=== PATIENT | male | born 1950 | race Caucasian/White ===

== ENCOUNTER 2019-03-01 14:34 | Outpatient (CLI) | payer MEDICARE, OTHER, SELFPAY ==
--- NOTE | 2019-03-01 15:00 | USCV_ITS ---
Luiz Tommy Age: 68 Gender: M : 1950 Exam Date: 03/01/2019 14:56 Ordering Phys: Cassia Ny INSURANCE ADMINISTRATIVE ASSISTANT XX Technologist: Geovanna Hall [place] [facility] [place]: atypical chest pain, BP: / HR: 72 Rhythm: Sinus Technical Quality: Good MEASUREMENTS (Male / Female) Normal Values 2D ECHO LV Diastolic Diameter PLAX 4.9 cm 4.2 - 5.9 / 3.9 - 5.3 cm LV Systolic Diameter PLAX 3.0 cm IVS Diastolic Thickness 1.0 cm 0.6 - 1.0 / 0.6 - 0.9 cm IVS Systolic Thickness 1.1 cm LVPW Diastolic Thickness 1.0 cm 0.6 - 1.0 / 0.6 - 0.9 cm LVPW Systolic Thickness 1.8 cm LVOT Diameter 2.0 cm LV Ejection Fraction 2D Teich 68.3 % LV Ejection Fraction MOD 2C 62.9 % LV Ejection Fraction 2C AL 64.0 % LA Diameter 3.4 cm LA Width 3.5 cm LA Height 3.8 cm RA Width 3.9 cm RA Height 4.6 cm M-MODE LV Diastolic Diameter MM 5.7 cm 4.2 - 5.9 / 3.9 - 5.3 cm LV Systolic Diameter MM 3.8 cm LV Ejection Fraction MM Teich 60.1 % IVS Diastolic Thickness MM 0.8 cm 0.6 - 1.0 / 0.6 - 0.9 cm IVS Systolic Thickness MM 1.2 cm LVPW Diastolic Thickness MM 0.7 cm 0.6 - 1.0 / 0.6 - 0.9 cm LVPW Systolic Thickness MM 1.1 cm Aortic Annulus Diameter 3.3 cm LA Ao Ratio MM 1.0 DOPPLER AV Peak Velocity 111.0 cm/s LVOT Peak Velocity 99.0 cm/s AV Area Cont Eq vti 2.8 cm squared AV Area Cont Eq pk 2.8 cm squared MV Peak Velocity 181.0 cm/s MV Area PHT 1.9 cm squared Mitral E to A Ratio 0.8 MV E' Velocity 136.0 cm/s TR Peak Velocity 45.0 cm/s TR Peak Gradient 0.8 mmHg Right Atrial Pressure 3.0 mmHg Pulmonary Artery Systolic Pressu 3.8 mmHg PV Peak Velocity 93.0 cm/s RV Acceleration Time 0.1 s FINDINGS Left Ventricle Normal LV size with a slightly diminished ejection fraction of 51%. Hypokinesis of the left ventricle.Grade I/IV diastolic dysfunction (abnormal relaxation filling pattern), normal to mildly elevated filling pressures. Right Ventricle Normal RV size and ejection fraction Right Atrium Possibly of normal size Left Atrium Possibly of normal size Mitral Valve ? A bioprosthetic valve in the mitral position. Peak velocity at the mitral inflow was 1.8 m/s. Peak gradient across the mitral valve was 4.6 mmHg Aortic Valve Thickened aortic valve Tricuspid Valve No gross abnormalities noted Pulmonic Valve No gross abnormalities noted Pericardium No pericardial effusion. Aorta Mildly dilated aortic root measuring 3.9 cm the level of the sinus CONCLUSIONS Normal LV size with a slightly diminished ejection fraction of 51%. Diffuse hypokinesia of the left ventricle . Grade I/IV diastolic dysfunction (abnormal relaxation filling pattern), normal to mildly elevated filling pressures. ? A bioprosthetic valve in the mitral position. Peak velocity at the mitral inflow was 1.8 m/s. Peak gradient across the mitral valve was 4.6 mmHg. Thickened aortic valve. There is no pericardial effusion. There are no intracardiac masses. Mildly dilated aortic root measuring 3.9 cm the level of the sinus. No previous study is available for comparison. Dr Crystal Torres MD FAC (Electronically Signed) Final Date: 02 March 2019 00:31 S
== END 2019-03-01 14:35 | disposition home or self-care (01) ==
LOC: RAD 14:36
PROVIDERS: Family Provider Nurse Practitioner Family; PCP Nurse Practitioner Family; Visit Provider Nurse Practitioner Family
DX: I77.819 Aortic ectasia, unspecified site (principal); R07.89 Other chest pain; I35.8 Other nonrheumatic aortic valve disorders; Z95.2 Presence of prosthetic heart valve
CPT/HCPCS: 93306

== ENCOUNTER 2021-02-14 11:19 | Emergency (ER) | payer MEDICARE, SELFPAY ==
[2021-02-14 11:34] VITALS: BP 162/96; PULSE 76; RESP 14; TEMP 37.1; O2SAT 98; BMI 26.4
--- NOTE | 2021-02-14 11:43 | ED_ITS ---
HPI - Chest Pain General: Chief Complaint: Extremity Injury, Upper Stated Complaint: Chest Pains Time Seen by Provider: 02/14/21 11:32 History of Present Illness: HPI narrative: 70-year-old male presents to the emergency room complaining of shoulder pain. He reports pain began 4 to 5 days ago initially in the right shoulder and then describes a migration across the collarbones in the left shoulder and then inferior from there. He has not really noticed anything that exacerbates or relieves it. He does have a history of a previous bioprosthetic mitral valve replacement in 2013. He has no known history of coronary artery disease. He has not had any significant shortness of breath with this nausea vomiting diarrhea or diaphoresis. 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 He is having minimal discomfort at this time. MD complaint: chest pain Onset (ago): day(s) (4) Timing of current episode: episodic Onset: during rest Pain location: right chest Pain radiation: left arm and left shoulder Severity: mild Quality: aching Relieving factors: nothing Exacerbating factors: nothing Associated symptoms: Deny abdominal pain, diaphoresis, dyspnea, fever(s), leg edema, nausea, palpitations, sense of impending doom, syncope or vomiting Treatment prior to arrival: none Review of Systems Const: Denies: fever(s) or diaphoresis ENMT: Denies: throat pain, ear or mastoid pain, nasal discharge or nasal congestion Card: Denies: palpitations or syncope Resp: Denies: dyspnea GI: Denies: abdominal pain, nausea or vomiting : Denies: flank pain, dysuria, urinary frequency or urinary urgency Skin/Breast: Denies: rash or pruritus PFSH ED PFSH: Medical History (Updated 02/14/21 @ 16:15 by Ephraim Tracey DO) Mitral valve disease Surgical History (Updated 02/14/21 @ 16:15 by Ephraim Tracey DO) History of mitral valve prosthesis Social History (Updated 02/14/21 @ 13:03 by Ephraim Tracey DO) Smoking and tobacco status: never smoked Alcohol intake: never Physical Exam Const: COMMON NORMALS: no acute distress GENERAL APPEARANCE: cooperative and comfortable ORIENTATION/CONSCIOUSNESS: Yes awake, Yes oriented to person, Yes oriented to place and Yes oriented to time HENMT: COMMON NORMALS: normocephalic, atraumatic and hearing grossly normal bilaterally HEAD & SCALP: normocephalic and atraumatic Neck/C-Spine: COMMON NORMALS: no JVD Resp: COMMON NORMALS: normal respiratory effort, No retractions, No use of accessory muscles and clear to auscultation bilaterally AUSCULTATION: clear to auscultation bilaterally Cardio: COMMON NORMALS: no JVD, regular rate, regular rhythm and No murmurs present (Cardio) RATE: regular rate RHYTHM: regular rhythm GI: COMMON NORMALS: Soft to palpation and No hepatosplenomegaly present AUSCULTATION: Yes normoactive bowel sounds PALPATION: Yes Soft to palpation, No Tenderness to palpation present (GI), No Guarding due to palpation present (GI) and Yes No hepatosplenomegaly present Extremity: COMMON NORMALS: normal to inspection, capillary refill normal, no clubbing, cyanosis or edema, no calf tenderness and no pedal edema Neuro: SENSORIUM/ORIENTATION: Yes oriented to person, Yes oriented to place and Yes oriented to time Skin: COMMON NORMALS: no rashes or lesions noted GENERAL SKIN EXAM: no rashes or lesions noted Course Vital Signs: Vital signs: Vital Signs Temperature 98.8 F 02/14/21 11:34 Pulse Rate 63 02/14/21 16:39 Respiratory Rate 16 02/14/21 16:39 Blood Pressure 130/78 02/14/21 16:39 Pulse Oximetry 98 02/14/21 16:39 MDM - Chest Pain MDM Narrative: Medical decision making narrative: Atypical chest pain presentation. Labs EKGs and imaging reviewed. We will go ahead and discharge patient home limit activity no work above shoulder level. Have him follow-up with his primary care doctor within the next week. We will set him up for a Le xiscan sestamibi stress test as well. Return for further problems. Lab Data: Labs: Lab Results 02/14/21 02/14/21 02/14/21 12:21 12:21 12:21 WBC 8.9 10^3/uL 10^3/ uL (4.0-10.0) RBC 3.95 10^6/uL L 10 ^6/uL (4.1-5.3) Hgb 12.7 g/dL g/dL (11.7-16.6) Hct 38.5 % L % (42.0-52.0) MCV 97.5 fl H fl (80-94) MCH 32.2 pg pg (28.0-34.0) MCHC 33.0 g/dL g/dL (30.0-36.0) RDW 12.0 % L % (12.1-15.1) Plt Count 176 10^3/cmm 10^3 /cmm (130-400) MPV 11.3 fL H fL (7.4-10.4) Neut % (Auto) 68.1 % % Lymph % (Auto) 20.0 % % [place] % (Auto) 9.6 % % Eos % (Auto) 1.8 % % Baso % (Auto) 0.2 % % Neut # (Auto) 6.02 10^3/uL 10^3 /uL (1.8-7.7) Lymph # (Auto) 1.8 10^3/uL 10^3/ uL (0.8-4.8) [place] # (Auto) 0.9 10^3/uL 10^3/ uL (0.2-0.9) Eos # (Auto) 0.2 10^3/uL 10^3/ uL (0.0-0.8) Baso # (Auto) 0.0 10^3/uL 10^3/ uL (0.0-0.1) Nucleated RBC % (a uto) 0 % % Nucleated RBCs # 0.0 /100WBC /100W BC Sodium 140 mmol/L mmol/L (136-145) Potassium 4.8 mmol/L mmol/L (3.5-5.1) Chloride 104 mmol/L mmol/L (98-107) Carbon Dioxide 23 mmol/L mmol/L (22-29) Anion Gap 17.8 (5-19) BUN 18 mg/dL mg/dL (8-23) Creatinine 0.8 mg/dL mg/dL (0.7-1.2) GFR Calculation 95.6 mL/min mL/mi n (90-130) Glucose 87 mg/dL mg/dL (65-115) Calculated Osmolal ity 291 mOsm/kg mOsm/ kg (285-295) Calcium 9.3 mg/dL mg/dL (8.5-10.5) Total Bilirubin 0.3 mg/dL mg/dL (0.15-1.2) AST 15 U/L U/L (0-40) ALT 14 U/L U/L (0-41) Alkaline Phosphata se 33 IU/L L IU/L (40-130) Troponin T Baselin e 17 ng/L H ng/L (0-15) Troponin T 120 Min jerome Delta Troponin T Total Protein 6.6 g/dL g/dL (6.6-8.7) Albumin 3.8 g/dL g/dL (3.5-5.2) Globulin 2.8 g/dL g/dL (1.3-4.6) 02/14/21 14:49 WBC RBC Hgb Hct MCV MCH MCHC RDW Plt Count MPV Neut % (Auto) Lymph % (Auto) [place] % (Auto) Eos % (Auto) Baso % (Auto) Neut # (Auto) Lymph # (Auto) [place] # (Auto) Eos # (Auto) Baso # (Auto) Nucleated RBC % (a uto) Nucleated RBCs # Sodium Potassium Chloride Carbon Dioxide Anion Gap BUN Creatinine GFR Calculation Glucose Calculated Osmolal ity Calcium Total Bilirubin AST ALT Alkaline Phosphata se Troponin T Baselin e Troponin T 120 Min jerome 16.61 ng/L H ng/L (0-15) Delta Troponin T -0.39 ABS# L ABS# (0-10) Total Protein Albumin Globulin Discharge Plan Discharge Patient Disposition: Home Clinical Impression: Atypical chest pain, History of mitral valve prosthesis, Shoulder pain, bilateral Condition: Stable Prescriptions: New aspirin 81 mg tablet,delayed release (DR/EC) 81 mg PO DAILY Qty: 30 RF: 0 Discharge Orders: Discharge ED (Routine); Ordered 02/14/21 Ordered By: Ephraim Tracey Referrals: Cassia Ny FNP [Primary Care Provider] - Discharge Diet: Usual diet Discharge Activity: Limit activity as instructed Patient Instructions: Opioid Safety Activity Restrictions/Additional Instructions: No working above shoulder level no exertional activities return to the ER if you have further problems. Case management will call to arrange for a Lexiscan sestamibi stress test follow-up with your primary care doctor within the week. Coding Level of Care Code ED Senior Electrical Engineer for Tracy Fwd Exam Comprehensive
--- NOTE | 2021-02-14 11:43 | ECG_ITS ---
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 Measurements Intervals [place] Rate: 74 P: 48 NV: 177 QRS: 40 QRSD: 90 T: 55 QT: 377 QTc: 421 Interpretive Statements SINUS RHYTHM POSSIBLE LEFT ATRIAL ENLARGEMENT [-0.1mV P-WAVE IN V1/V2] Compared to ECG 06/10/2017 10:04:29 No significant changes Electronically Signed On 02-14-2021 20:25:46 BENZENE OPERATOR by Rose Trent M.D. [id number]
--- NOTE | 2021-02-14 11:43 | XR_ITS ---
WS: [id number] Portable AP upright chest, 02/14/2021 Clinical Data: chest pain Comparison: PA and lateral chest, 07/20/2017. Findings: No nodules, masses or effusions are seen. The heart is normal. The pulmonary vascularity is not increased. No pneumonia or pneumothorax is seen. There are midline sternotomy sutures and an art ificial cardiac valve. The aortic arch and descending thoracic aorta show mild tortuosity. There are monitor leads on the chest wall. XR/XR chest 1V portable [id number] Impression: Atherosclerosis.
--- NOTE | 2021-02-14 12:03 | XR_ITS ---
WS: [id number] Left shoulder, 2 views, 02/14/2021 Clinical Data: l shoulder Comparison: None. Findings: No fractures or dislocations are seen. There is minimal irregularity of the glenoid rim. The AC joint is normal. The adjacent left clavicle, left scapula and ribs are normal. The soft tissues are unrema rkable. Midline sternotomy sutures are noted. There is a monitor lead overlying the left chest. 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
[2021-02-14 12:31] VITALS: BP 129/79; PULSE 64; RESP 19; O2SAT 97
[2021-02-14 12:37] LABS: Basophils % 0.2 %; Eosinophils # 0.2 10^3/uL (0.0-0.8); Eosinophils % 1.8 %; Hematocrit 38.5 % (42.0-52.0); Hemoglobin 12.7 g/dL (11.7-16.6); Lymphocytes # 1.8 10^3/uL (0.8-4.8); Mean Corpuscular Hemoglobin 32.2 pg (28.0-34.0); Mean Corpuscular Volume 97.5 fl (80-94); Mean Platelet Volume 11.3 fL (7.4-10.4); Monocytes # 0.9 10^3/uL (0.2-0.9); Monocytes % 9.6 %; Neutrophils # 6.02 10^3/uL (1.8-7.7); Neutrophils % 68.1 %; Nucleated Red Blood Cells % 0 %; Platelet Count 176 10^3/cmm (130-400); Red Blood Count 3.95 10^6/uL (4.1-5.3); White Blood Count 8.9 10^3/uL (4.0-10.0)
[2021-02-14 12:54] VITALS: BP 129/79; PULSE 61; O2SAT 96
[2021-02-14 12:55] LABS: Alanine Aminotransferase 14 U/L (0-41); Albumin Level 3.8 g/dL (3.5-5.2); Alkaline Phosphatase 33 IU/L (40-130); Anion Gap 17.8 (5-19); Aspartate Amino Transferase 15 U/L (0-40); Blood Urea Nitrogen 18 mg/dL (8-23); Calcium 9.3 mg/dL (8.5-10.5); Carbon Dioxide 23 mmol/L (22-29); Chloride 104 mmol/L (98-107); Globulin 2.8 g/dL (1.3-4.6); Glomerular Filtration Rate 95.6 mL/min (90-130); Glucose 87 mg/dL (65-115); Osmolality Calculated 291 mOsm/kg (285-295); Potassium 4.8 mmol/L (3.5-5.1); Sodium 140 mmol/L (136-145); Total Bilirubin 0.3 mg/dL (0.15-1.2); Total Protein 6.6 g/dL (6.6-8.7)
[2021-02-14 12:57] LABS: Troponin(5th) Baseline 17 ng/L (0-15)
--- NOTE | 2021-02-14 13:43 | ECG_ITS ---
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 Measurements Intervals [place] Rate: 62 P: 46 VT: 190 QRS: 36 QRSD: 88 T: 52 QT: 420 QTc: 428 Interpretive Statements SINUS RHYTHM Compared to ECG 02/14/2021 11:37:37 No significant changes Electronically Signed On 02-14-2021 20:39:13 RESIDENT PROGRAMS ASSISTANT by Rose Trent M.D. [id number]
[2021-02-14 14:06] VITALS: BP 151/85; PULSE 64; RESP 15; O2SAT 97
[2021-02-14 15:34] LABS: Troponin 5 2HR 16.61 ng/L (0-15)
[2021-02-14 15:41] LABS: Troponin 5 2HR Delta -0.39 ABS# (0-10)
[2021-02-14 16:39] VITALS: BP 130/78; PULSE 63; RESP 16; O2SAT 98
--- NOTE | 2021-02-17 14:51 | DCPLANNER ---
Addendum entered by Kacey Chow 03/06/21 09:48: Patient had a stress test scheduled for 02.28.21 - patient did attend appointment. Original Note: funeral service manager had message to schedule an outpatient stress test for patient. funeral service manager faxed signed order to centralized scheduling, who will call patient with appointment information.
== END 2021-02-14 16:42 | disposition home or self-care (01) ==
PROVIDERS: Emergency Provider Family Medicine; PCP Nurse Practitioner Family
DX: M25.512 Pain in left shoulder (principal); M25.511 Pain in right shoulder; R07.89 Other chest pain; Z95.2 Presence of prosthetic heart valve
CPT/HCPCS: 71045; 73030; 80053; 84484; 85025; 93005; 99283

== ENCOUNTER 2021-02-28 09:46 | Outpatient (CLI) | payer MEDICARE, SELFPAY ==
[2021-02-28 09:45] VITALS: BMI 26.4
--- NOTE | 2021-02-28 10:56 | NMCV_ITS ---
NM moraima perf SPECT r/s* [id number] Tommy Dee Age: 70 Gender: M : 1950 Exam Date: 02/28/2021 11:21 Ordering Phys: Ephraim Tracey DO Technologist: SCOTT Long Exam Location: [facility] Indications: ATYPICAL CHEST PAIN STRESS TEST Please [facility] for [facility] IMAGE PROTOCOL Rest/Stress 1 Lexiscan Day Radiopharmaceutical Dose (mCi) Administration Site Administered by Rest: Tc-99m 10.6 IV SCOTT Kendrick Sestamibi Stress:Tc-99m 32.8 IV SCOTT Long Sestamiusha Rest: 28-Feb-2021 60 Discovery 630 Stress: 28-Feb-2021 30 Discovery 630 0.4mg Lexiscan. Images obtained in supine and prone position. SPECT RESULTS Technical Quality: Excellent Raw Data Analysis: Normal Image Corrections: No attenuation or motion correction applied Summed Stress Score: 2 Summed Rest Score: 1 Summed Difference Score: 1 PERFUSION FINDINGS Small size perfusion abnormality of mild severity of mid inferolateral wall and apical inferior wall on rest images with subtle reversibility in mid inferolateral wall on supine stress images with improved tracer uptake on prone stress images. FUNCTIONAL RESULTS (calculated via Gated SPECT) Stress Image LV EF (%): 59 Stress EDV (mL):129 TID: 0.94 Stress ESV (mL):53 FUNCTIONAL FINDINGS: The left ventricle is normal in size. Transient Ischemia Dilatation of 0.94. There is normal left ventricular systolic function. The left ventricular ejection fraction is normal with a value of 59%. There is normal left ventricular end-diastolic and end-systolic volumes. IMPRESSIONS 1. Small size perfusion abnormality of mild severity of mid inferolateral ayala with subtle reversibility in mid inferolateral and apical lateral ayala. 2. This may represent small area of ischemia in circumflex artery territory. 3. Overall left ventricular systolic function is normal without regional wall motion abnormalities. 4. The left ventricular ejection fraction is normal with a value of 59%. 5. No prior similar studies to compare. Rose Trent MD (Electronically Signed) Final Date: 06 March 2021 14:04 S
--- NOTE | 2021-02-28 10:56 | ECG_ITS ---
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 Interpretive Statements NAME OF STUDY: LEXISCAN SESTAMIBI STRESS TEST INDICATION: Chest Pain PROCEDURE: At the baseline, the blood pressure was 159/108 mmHg, oxygen saturation 97% with a heart rate of 50 bpm. The electrocardiogram showed sinus bradycardia with nonspecific ST depression. The Lexiscan was infused over a period of 20 seconds. A total of 0.4 milligrams of Lexiscan was infused. The stress phase was continued for a total of 5 minutes. Heart rate at the end of the stress phase was 58 bpm, oxygen saturation 95% with a blood pressure of 157/98 mmHg. The EKG at the peak infusion revealed sinus bradycardia with no significant ST-T wave changes. Sestamibi was injected 20 seconds after the Lexiscan infusion. Blood pressure at the end of the recovery phase was 162/95 mmHg, oxygen saturation 96% with a heart rate of 57 beats per minute. CONCLUSION: 1. No significant EKG changes with the LexiScan infusion 2. No LexiScan induced chest pain or cardiac arrhythmia. 3. Baseline hypertension with normal blood pressure and heart rate response. 4. Sestamibi/sestamibi perfusion scan pending; see separate report. SEND RESULTS TO JAIRO GUERRA Electronically Signed On 03-04-2021 13:39:53 RELIGION DEPARTMENT CHAIR by Rose Trent M.D. [id number]
[2021-02-28] MEDS: regadenoson 0.4 Mg/5 ml Syringe IVP (11:56)
[2021-02-28 12:10] VITALS: BP 162/95; PULSE 57
== END 2021-02-28 09:47 | disposition home or self-care (01) ==
LOC: CDL 09:53
PROVIDERS: PCP Nurse Practitioner Family; Visit Provider Family Medicine
DX: R07.89 Other chest pain (principal)
CPT/HCPCS: 78452; 93017; A9500; J2785

== ENCOUNTER → 2022-03-19 15:48 | Outpatient (BNVA) | payer MEDICARE, SELFPAY | PROVIDERS: PCP Nurse Practitioner Family; Visit Provider Internal Medicine | DX: I05.9 Rheumatic mitral valve disease, unspecified (principal); Z95.2 Presence of prosthetic heart valve; R06.00 Dyspnea, unspecified; Z87.891 Personal history of nicotine dependence | CPT/HCPCS: 99214 ==

== ENCOUNTER 2022-05-30 06:02 | Outpatient (CLI) | payer MEDICARE, SELFPAY ==
--- NOTE | 2022-05-30 06:15 | USCV_ITS ---
Tommy Dee Age: 72 Gender: M : 1950 Exam Date: 05/30/2022 06:16 Ordering Phys: Matt Rodas M.D ([email or web address]) Technologist: TOMI [place] [facility] [place]ication: SHORTNESS OF BREATH, H/O MITRAL VALVE REPLACEMENT BP: 136 / 78 HR: 74 Rhythm: Sinus Technical Quality: Adequate MEASUREMENTS (Male / Female) Normal Values 2D ECHO LVOT Diameter 2.0 cm LV Ejection Fraction MOD 2C 39.2 % LV Ejection Fraction 2C AL 38.8 % LA Diameter 3.4 cm LA Width 3.9 cm LA Height 3.5 cm RA Width 4.4 cm RA Height 4.6 cm Aorta at Sinotubular Diameter 2.9 cm IVC Diameter 1.6 cm M-MODE Aortic Annulus Diameter 3.8 cm LA Ao Ratio MM 0.8 MV E Point Septal Separation 1.1 cm DOPPLER AV Peak Velocity 142.0 cm/s LVOT Peak Velocity 111.0 cm/s AV Area Cont Eq vti 2.6 cm squared AV Area Cont Eq pk 2.5 cm squared MV Peak Velocity 182.0 cm/s MV Area PHT 3.2 cm squared Mitral E to A Ratio 0.8 MV E' Velocity 85.6 cm/s Mitral E to MV E' Ratio 21.1 Mitral E to LV E' Lateral Ratio 20.5 Mitral E to LV E' Septal Ratio 21.8 TR Peak Velocity 158.4 cm/s TR Peak Gradient 10.0 mmHg TR Mean Velocity 133.3 cm/s TR Mean Gradient 7.5 mmHg TR Velocity Time Integral 47.8 cm TV Peak E Velocity 33.0 cm/s Right Atrial Pressure 3.0 mmHg Pulmonary Artery Systolic Pressu 13.0 mmHg PV Peak Velocity 99.0 cm/s RV Acceleration Time 0.1 s RV Ejection Time 0.4 s RV AcT/ET 0.2 FINDINGS Left Ventricle Left ventricle appears dilated. LV systolic function is moderately reduced with EF of 35-40%. Moderate to severe global hypokinesis seen. Grade 1 diastolic dysfunction. Right Ventricle Normal in size and function Right Atrium Normal in size Left Atrium Normal in size Mitral Valve Bioprosthetic mitral valve is seen. It is thickened. Trace mitral regurgitation. Mild to moderately increased gradients across mitral valve with mean gradient of 6.8 mmHg. Aortic Valve Grossly normal. Mild aortic regurgitation. No significant stenosis. Tricuspid Valve Mild tricuspid regurgitation. Pulmonary artery systolic pressure is normal. Pulmonic Valve Not well-visualized. Mild pulmonic regurgitation. Pericardium Normal Aorta Normal in size. IVC Appears to be normal CONCLUSIONS Left ventricle is dilated. LV systolic function is moderately reduced with EF of 35-40%. Grade 1 diastolic dysfunction. Bioprosthetic Mitral valve is seen. Trace mitral regurgitation. Mild to moderately increased gradients across mitral valve Mild aortic regurgitation Mild tricuspid regurgitation Mild pulmonic regurgitation Compared to prior echocardiogram from 2019, patient's LV systolic function is decreased and mean gradient across mitral valve has increased Matt Rodas MD (Electronically Signed) Final Date: 07 June 2022 16:19 S
== END 2022-05-30 06:03 | disposition home or self-care (01) ==
PROVIDERS: PCP Nurse Practitioner Family; Visit Provider Internal Medicine
DX: R06.02 Shortness of breath (principal)
CPT/HCPCS: 93306

== ENCOUNTER → 2022-06-13 10:48 | Outpatient (BNVA) | payer MEDICARE, SELFPAY | PROVIDERS: PCP Nurse Practitioner Family; Visit Provider Internal Medicine | DX: I05.9 Rheumatic mitral valve disease, unspecified (principal); R06.00 Dyspnea, unspecified; Z95.2 Presence of prosthetic heart valve; I50.20 Unspecified systolic (congestive) heart failure; Z87.891 Personal history of nicotine dependence; Z79.82 Long term (current) use of aspirin | CPT/HCPCS: 99214 ==

== ENCOUNTER 2022-06-23 07:08 | Outpatient (CLI) | payer MEDICARE, SELFPAY ==
[2022-06-23 08:33] LABS: Basophils % 0.5 %; Eosinophils # 0.2 10^3/uL (0.0-0.8); Eosinophils % 3.1 %; Hematocrit 38.5 % (42.0-52.0); Hemoglobin 12.5 g/dL (11.7-16.6); Lymphocytes # 1.6 10^3/uL (0.8-4.8); Lymphocytes % 27.2 %; Mean Corpuscular HGB Conc 32.5 g/dL (30.0-36.0); Mean Corpuscular Hemoglobin 31.6 pg (28.0-34.0); Mean Corpuscular Volume 97.5 fl (80-94); Mean Platelet Volume 11.9 fL (7.4-10.4); Monocytes # 0.8 10^3/uL (0.2-0.9); Neutrophils # 3.22 10^3/uL (1.8-7.7); Neutrophils % 55.9 %; Nucleated Red Blood Cells % 0 %; Platelet Count 141 10^3/cmm (130-400); Red Blood Count 3.95 10^6/uL (4.1-5.3); Red Cell Distribution Width 13.3 % (12.1-15.1); White Blood Count 5.8 10^3/uL (4.0-10.0)
[2022-06-23 08:45] LABS: INR 1.03 (0.83-1.21); Prothrombin Time (Patient) 13.9 Seconds (12.0-15.1)
[2022-06-23 08:48] LABS: Anion Gap 16.4 (5-19); Blood Urea Nitrogen 22 mg/dL (8-23); Calcium 8.5 mg/dL (8.5-10.5); Carbon Dioxide 21 mmol/L (22-29); Chloride 108 mmol/L (98-107); Glucose 111 mg/dL (65-115); Osmolality Calculated 296 mOsm/kg (285-295); Potassium 4.4 mmol/L (3.5-5.1); Sodium 141 mmol/L (136-145)
== END 2022-06-23 07:09 | disposition home or self-care (01) ==
LOC: LAB 08:03
PROVIDERS: PCP Nurse Practitioner Family; Visit Provider Internal Medicine
DX: R06.00 Dyspnea, unspecified (principal); I05.9 Rheumatic mitral valve disease, unspecified; I50.20 Unspecified systolic (congestive) heart failure
CPT/HCPCS: 36415; 80048; 85025; 85610

== ENCOUNTER 2022-06-30 05:57 | Outpatient (CLI) | payer MEDICARE, SELFPAY ==
[2022-06-30] VITALS (15 sets, daily range): BP systolic 107–144; BP diastolic 72–98; PULSE 63–96; RESP 16–23; TEMP 36.7; O2SAT 94–97; BMI 26.2
--- NOTE | 2022-06-30 06:00 | XACV_ITS ---
Exam Room: 2 Ht: 185 cm Wt: 90 kg BSA: 2.17 m2 Gender: Male : 1950 Any Known Allergies: No known allergies Exam Priority: Routine Procedure(s): Procedure Description: Diagnostic procedure Procedure Description: Left Heart Catheterization Procedure Description: Right Heart Catheterization Procedure Description: Left ventriculography Procedure Description: O2 saturation Procedure Description: Coronary Angiography Diagnostic Cath Status: Elective Diagnostic Findings * No significant disease noted in the Left Main, Left Anterior Descending, Right, or Circumflex coronary arteries. * Right heart cath demonstrated significantly elevated right and left sided cardiac pressures. * Coronary angiography shows left dominance. Conclusions 1. No significant disease noted in the Left Main, Left Anterior Descending, Right, or Circumflex coronary arteries. 2. Non-ischemic cardiomyopathy. 3. Significantly elevated right and left sided cardiac pressures. 4. Moderate post capillary pulmonary hypertension. 5. Moderate left ventricular systolic dysfunction. Ejection fraction of 30%. Recommendations * Aggressive risk factor modification. * We will start metoprolol. Will add losartan/ enteresto as outpatient. Starting lasix. * Outpatient cardiology follow up in 2 weeks. Interventional RX Recommendation: medical therapy and/or counseling Diagnostic RX Recommendation: medical therapy and/or counseling Anticoagulation: Heparin Ventriculography Ejection Fraction: 30.0 % Pressures Phase:Rest AO : 115 / 79 ( 94 ) @ 8:30:00 AM 113 / 71 ( 91 ) @ 8:40:00 AM 115 / 72 ( 91 ) @ 8:40:00 AM LV : 112 / 8 / 29 @ 8:39:00 AM 116 / 8 / 29 @ 8:40:00 AM 115 / 7 / 30 @ 8:40:00 AM RV : 46 / 12 / 22 @ 8:24:00 AM PA : 44 / 28 ( 33 ) @ 8:22:00 AM RA : a wave = 22 v wave = 19 mean = 18 @ 8:24:00 AM a wave = 23 v wave = 21 mean = 20 @ 8:24:00 AM PCW : a wave = 30 v wave = 32 mean = 26 @ 8:22:00 AM a wave = 29 v wave = 28 mean = 26 @ 8:23:00 AM O2 Content Phase:Rest PA : O2 Content O2: 59.3 @ 8:40:00 AM Saturations Phase:Rest AO : 88 @ 8:30:00 AM PA : 59 @ 8:40:00 AM Cardiac Output Phase:Rest Macario : 5 @ 7:52:44 AM Macario Cardiac Index: 2 @ 7:52:44 AM Flow Phase:Rest Qp : 5 @ 7:52:44 AM Qs : 5 @ 7:52:44 AM Valves Phase:DefaultPhase AV : 2.0 @ 7:52:44 AM 2.0 @ 7:52:44 AM AV Mean Gradient: 0.0 @ 7:52:44 AM 0.0 @ 7:52:44 AM AV Flow: 316 @ 7:52:44 AM Clinical Evaluation EBL: 5mL-10mL Procedural Details Procedure Consent Obtained. Pre-Procedure Time Out. Identified patient by full name and date of as verbalized by the patient/guarantor. Does the consent match the physician's order: Yes. Accurate & Complete Informed Consent: Yes. Inpatient/Outpatient History & Physical on Chart: Yes. If H&P is completed, is and addenduem needed: No; If yes, is the addendum complete: N/A. Visualize and Verify Site with Patient/Guarantor: N/A. Relevant Radiology Images available: Yes. Pre-op teaching completed and patient verbalized understanding. The risks, benefits, and alternatives of sedation and/or procedure were discussed by physician. The patient agrees to continue. Procedure started. Physician arrived. [facility] Clinical Fraility Score: 3: Managing Well. Lumber Material Handler Indications: Other. Chest Pain Symptom Assessment: Non-anginal Chest Pain. Correct patient, site and procedure confirmed by cath team. PERRLA. Strong, equal hand slitter and cutter operator bilaterally. Lungs clear x 5 lobes. IV Site on Arrival: 20 gauge in the left anticubital. IV Site on Arrival: 20 gauge in the right anticubital. IV Fluids: 0.9% NaCl at KVO. 0 mL infused prior to hoisting laborer. Pre Procedural Pulses: bilateral dorsalis pedis was 2+. Pre Procedural Pulses: bilateral posterior tibial was 3+. Pre Procedural Pulses: bilateral radial was 3+. right groin was prepped with chloroprep then draped in the usual sterile fashion. right radial was prepped with chloroprep then draped in the usual sterile fashion. right brachial was prepped with chloroprep then draped in the usual sterile fashion. Baseline sample Acquired. HR: 52 BPM. Physician scrubbed in. Immediate Pre-Procedure Time Out. Correct Patient: Yes; Correct Procedure: Yes; Correct Site: Yes; Correct Patient Position: Yes; Correct Supplies: Yes; Dried Flammable Prep: Yes; Blood Products Available: N/A;. Lidocaine 1% infiltrated to the right brachial. Sheath wire inserted through the brachial IV catheter. IV catheter out over the wire. Arboles-Magaly VIP catheter inserted. Oximetry samples were obtained. Normal venous range: 60-85%. Normal arterial range: 95-100%. Pressure measurements obtained. Arboles-Magaly out. Lidocaine 1% infiltrated to the right radial. Arterial access obtained. A 5 martiniquais TIG catheter in over wire. Multiple views taken of left coronary artery. Catheter redirected to the RCA. Catheter removed over the exchange wire. A 5 martiniquais JR4 catheter in over wire. Oxygen started at 2liters/min via nasal canula. Multiple views taken of right coronary artery. Catheter removed over the exchange wire. A 5 martiniquais Angled Pig catheter in over wire. EDP Sample taken: LV 112/8,29; HR: 62 BPM; SpO2: 93%. LV gram performed in CHRISTIAN @ 10 mL/second for a total of 30 mL. EDP Sample taken: LV 116/8,29; HR: 64 BPM; SpO2: 95%. Pullback taken: LV 115/7,30; AO 113/71(91); Mean: 0mmHg, Peak to Peak: 2mmHg, SEP: 15sec/min; HR: 60 BPM; SpO2: 95%. Catheter removed over the exchange wire. Physician scrubbed out. A TR Band was successful obtaining hemostatsis at the Right Radial artery insertion site. A Manual Compression was successful obtaining hemostatsis at the Right Brachial Vein insertion site. Physician review of cine films. Post Procedure: Pulses reassessed and unchanged. PERRLA. Strong, equal hand slitter and cutter operator bilaterally. No VTE prophylaxis required. Medication's Wasted: Lidocaine 1% = 1 mL. Medication's Wasted: Nitro = 49.8 mg. Medication's Wasted: Heparin = 1000 units. Medication's Wasted: Other = Fentanyl 50mcg. Total IV fluids: 44 mL. Complications: None. Post-op diagnosis: Normal Coronaries. Estimated blood loss: 5mL-10mL. Responsiveness - Normal response to verbal stimuli; alert and oriented, PERRLA. Airway - Unaffected, no intervention required; spontaneous ventilation. Circulation: W/N/L, pulses unchanged. Nausea/Vomiting: No. Procedure completed. Patient transferred by wheelchair to CPRU. Vital chart was stopped. Access Site Site: Right Brachial Vein Sheath Size: 6 Fr Hemostasis Method: Manual Compression Hemostasis Success: Successful Site: Right Radial artery Sheath Size: 6 Fr Hemostasis Method: TR Band Hemostasis Success: Successful Procedure Medications Start: 7:07 AM Stop: 7:07 AM Medication: Versed Amount: 1 mg Route: I.V. Start: 7:07 AM Stop: 7:07 AM Medication: Fentanyl Amount: 50 mcg Route: I.V. Start: 7:19 AM Stop: 7:19 AM Medication: Versed Amount: 1 mg Route: I.V. Start: 7:27 AM Stop: 7:27 AM Medication: Nitrogylcerin Amount: 200 mcg Route: I.A. Start: 7:30 AM Stop: 7:30 AM Medication: Heparin Amount: 5000 units Route: I.V. I, the attending physician, have reviewed and verified all procedure medications. Yes, all medications given per verbal order History/Risk Factors Hypertension: No Dyslipidemia: No Peripheral Arterial Disease (PAD): No Myocardial Infarction (AR): No Obesity: No Renal Disease: No Tobacco Use: Former Prior Interventions PCI: No CABG: No Valve Surgery: No Report Signatures Finalized by Matt Rodas MD on 07/03/2022 05:30 PM
[2022-06-30] MEDS: diphenhydrAMINE 50 mg Capsule PO (06:30)
--- NOTE | 2022-06-30 07:15 | W.PM.OPSUD ---
Surgery/Procedure H&P Update DATE OF PROCEDURE: June 30, 2022 DATE H&P PERFORMED: 06/13/22 H&P UPDATE INFORMATION: I have reviewed H&P completed within last 30 days, I have examined patient prior to procedure and No changes to prior documentation PREOP DIAGNOSIS: New onset congestive heart failure/ LV EF drop PRIMARY INDICATION FOR PROCEDURE: New onset congestive heart failure/ LV EF drop PLANNED PROCEDURE: Operation Date: 06/30/22 07:00 Proposed Procedures p [facility] [address], R06.00, I05.9, Z95.2(Bilateral) - Matt Rodas M.D Possible percutaneous coronary intervention PATIENT REASSESSED PRIOR TO SEDATION, WITH NO CHANGE NOTED: Yes PHYSICAL EXAM: alert, oriented x 3, clear to auscultation bilaterally and regular rate & rhythm AIRWAY EVAL/ANESTHESIA PLAN: normal airway, ASA III, Local Anesthesia, Risks, benefits & alternatives of sedation and/or procedure discussed and Patient agrees to continue as planned ADDITIONAL INFORMATION: Moderate sedation
[2022-06-30 07:35] LABS: Alveolar-Arterial Oxygen Gradi 4.7 mmHg (5-10); Blood Gas Operator Identificat glc; Blood Gas Sample Site Not specified; Blood Gas Sample Type Not specified; Methemoglobin 0.9 % (0.4-1.5)
[2022-06-30 07:48] LABS: Carboxyhemoglobin 1.5 %THgb (0.4-20.1); HGB O2 Sat 57.9 % (95-100); Total Hemoglobin 12.1 g/dL (14-18)
--- NOTE | 2022-06-30 10:00 | PC.NURSE ---
1000: TR band removed from patient right wrist. No drainage or hematoma noted. Cleaned around puncture site with soap and water, covered with band-aid. Vitals WDL. No c/o pain or discomfort. Will continue to monitor.
--- NOTE | 2022-06-30 12:08 | PC.NURSE ---
1155: Discharge orders received. Dsg over puncture site to patient's right wrist clean, dry, et intact. No drainage or hematoma noted. Vitals WDL. No c/o pain or discomfort. Education given to patient and spouse. Patient verbalized understanding of all teaching. IV removed from left AC. Follow-up appointment made with JERRI Herrera. Patient discharged to home via wheelchair in private vehicle with spouse.
[2022-07-01 13:51] LABS: Arterial Blood Gas Hematocrit 37.5 % (42-52); Blood Gas Operator Identificat CONGI; Carboxyhemoglobin 1.6 %THgb (0.4-20.1); HGB O2 Sat 86.1 % (95-100); Methemoglobin 0.9 % (0.4-1.5); Total Hemoglobin 12.2 g/dL (14-18)
== END 2022-06-30 12:00 | disposition home or self-care (01) ==
PROVIDERS: PCP Nurse Practitioner Family; Visit Provider Internal Medicine
DX: I50.20 Unspecified systolic (congestive) heart failure (principal); Z87.891 Personal history of nicotine dependence; Z95.2 Presence of prosthetic heart valve; R06.00 Dyspnea, unspecified; R94.39 Abnormal result of other cardiovascular function study
CPT/HCPCS: 36415; 82810; 93460; 96361; 96365; 99152; 99153; C1751; C1769; C1887; C1894; J1644; J2250; J3010; J3490; J7030; Q0163; Q9967

== ENCOUNTER → 2022-07-08 09:56 | Outpatient (BNVA) | payer MEDICARE, SELFPAY | PROVIDERS: PCP Nurse Practitioner Family; Visit Provider Nurse Practitioner Family | DX: I50.20 Unspecified systolic (congestive) heart failure (principal) | CPT/HCPCS: 36415; 80048; 83880; 99214 ==

== ENCOUNTER → 2022-09-17 15:18 | Outpatient (BNVA) | payer MEDICARE, SELFPAY | PROVIDERS: PCP Nurse Practitioner Family; Visit Provider Internal Medicine | DX: I05.9 Rheumatic mitral valve disease, unspecified (principal); Z95.2 Presence of prosthetic heart valve; R06.00 Dyspnea, unspecified; I50.20 Unspecified systolic (congestive) heart failure; Z87.891 Personal history of nicotine dependence | CPT/HCPCS: 99214 ==

== ENCOUNTER 2022-10-02 07:33 | Outpatient (CLI) | payer MEDICARE, SELFPAY ==
--- NOTE | 2022-10-02 08:00 | USCV_ITS ---
AkhilTommy kemp Age: 72 Gender: M : 1950 Exam Date: 10/02/2022 08:10 Ordering Phys: Matt Rodas M.D ([email or web address]) Technologist: Geovanna Hall Exam Location: [facility] [place] Indication: SOB, MV replacement s/P BP: 106 / 78 HR: 92 Rhythm: Sinus Technical Quality: Good MEASUREMENTS (Male / Female) Normal Values 2D ECHO LV Diastolic Diameter PLAX 5.8 cm 4.2 - 5.9 / 3.9 - 5.3 cm LV Systolic Diameter PLAX 5.5 cm IVS Diastolic Thickness 0.8 cm 0.6 - 1.0 / 0.6 - 0.9 cm IVS Systolic Thickness 0.6 cm LVPW Diastolic Thickness 1.0 cm 0.6 - 1.0 / 0.6 - 0.9 cm LVPW Systolic Thickness 1.8 cm LVOT Diameter 2.2 cm LV Ejection Fraction 2D Teich 14.0 % LV Ejection Fraction MOD 2C 22.2 % LV Ejection Fraction 2C AL 24.9 % LA Diameter 3.0 cm LA Width 3.5 cm LA Height 4.2 cm RA Width 2.5 cm RA Height 3.9 cm Aorta at Sinotubular Diameter 3.8 cm IVC Diameter 1.7 cm M-MODE Aortic Annulus Diameter 4.0 cm LA Ao Ratio MM 0.8 DOPPLER AV Peak Velocity 128.0 cm/s LVOT Peak Velocity 90.0 cm/s AV Area Cont Eq vti 3.1 cm squared AV Area Cont Eq pk 2.6 cm squared MV Peak Velocity 284.0 cm/s MV Area PHT 5.0 cm squared Mitral E to A Ratio 22.4 MV E' Velocity 99.6 cm/s Mitral E to MV E' Ratio 37.7 Mitral E to LV E' Lateral Ratio 31.2 Mitral E to LV E' Septal Ratio 48.5 TR Peak Velocity 150.5 cm/s TR Peak Gradient 9.1 mmHg Right Atrial Pressure 5.0 mmHg Pulmonary Artery Systolic Pressu 14.1 mmHg PV Peak Velocity 78.7 cm/s RV Acceleration Time 0.1 s RV Ejection Time 0.3 s RV AcT/ET 0.3 FINDINGS Left Ventricle Left ventricle is mildly dilated. LV systolic function is severely reduced with EF of 20-25%. Severe global hypokinesis is seen. Right Ventricle Normal in size. Mildly reduced RV function Right Atrium Normal in size Left Atrium Normal in size Mitral Valve Mitral valve is thickened. Likely bioprosthetic mitral valve. Mild to moderately increased gradients across the mitral valve with mean gradient of 6.1mmHg. Aortic Valve Grossly normal . No significant stenosis seen. Tricuspid Valve Trace tricuspid regurgitation. Insufficient TR jet to calculate RVSP Pulmonic Valve Not well visualized Pericardium Normal Aorta Ascending aorta is dilated. Diameter is 4.17cm. IVC Appears to be normal CONCLUSIONS LV systolic function is severely reduced with EF of 20-25% Mildly reduced RV function Likely bioprosthetic mitral valve. Mild to moderately increased gradients across the mitral valve with mean gradient of 6.1mmHg. Trace tricuspid regurgitation Ascending aorta is dilated. Diameter is 4.17cm Compared to prior echocardiogram from 05/2022, LV systolic function has decreased further. Matt Rodas MD (Electronically Signed) Final Date: 20 October 2022 08:36 S
== END 2022-10-02 07:34 | disposition home or self-care (01) ==
LOC: RAD 07:39
PROVIDERS: PCP Nurse Practitioner Family; Visit Provider Internal Medicine
DX: I07.1 Rheumatic tricuspid insufficiency (principal); I77.819 Aortic ectasia, unspecified site; R06.02 Shortness of breath; R07.9 Chest pain, unspecified
CPT/HCPCS: 93306

== ENCOUNTER → 2022-12-01 14:29 | Outpatient (BNVA) | payer MEDICARE, SELFPAY | PROVIDERS: PCP Nurse Practitioner Family; Visit Provider Internal Medicine | DX: I05.9 Rheumatic mitral valve disease, unspecified (principal); Z95.2 Presence of prosthetic heart valve; R06.00 Dyspnea, unspecified; I50.20 Unspecified systolic (congestive) heart failure; Z87.891 Personal history of nicotine dependence | CPT/HCPCS: 99214 ==

== ENCOUNTER → 2023-05-29 09:44 | Outpatient (BNVA) | payer MEDICARE, SELFPAY | PROVIDERS: PCP Nurse Practitioner Family; Visit Provider Nurse Practitioner Family | DX: I50.20 Unspecified systolic (congestive) heart failure (principal); Z87.891 Personal history of nicotine dependence | CPT/HCPCS: 99213 ==

== ENCOUNTER → 2023-10-26 09:47 | Outpatient (BNVA) | payer MEDICARE, SELFPAY | PROVIDERS: PCP Nurse Practitioner Family; Visit Provider Internal Medicine | DX: I05.0 Rheumatic mitral stenosis (principal); Z95.2 Presence of prosthetic heart valve; R06.00 Dyspnea, unspecified; I50.20 Unspecified systolic (congestive) heart failure | CPT/HCPCS: 99214 ==

== ENCOUNTER 2023-11-25 07:44 | Outpatient (CLI) | payer MEDICARE, SELFPAY ==
--- NOTE | 2023-11-25 07:45 | USCV_ITS ---
Tommy Dee Age: 73 Gender: M : 1950 Exam Date: 11/25/2023 08:07 Ordering Phys: Matt Rodas M.D ([email or web address]) Technologist: TOMI [place] [facility] [place]ication: MV REPLACEMENT BP: 130 / 80 HR: 77 Rhythm: Sinus Technical Quality: Adequate MEASUREMENTS (Male / Female) Normal Values 2D ECHO LV Diastolic Diameter PLAX 5.4 cm 4.2 - 5.9 / 3.9 - 5.3 cm IVS Diastolic Thickness 0.9 cm 0.6 - 1.0 / 0.6 - 0.9 cm IVS Systolic Thickness 1.6 cm LVPW Diastolic Thickness 1.7 cm 0.6 - 1.0 / 0.6 - 0.9 cm LVPW Systolic Thickness 2.1 cm LVOT Diameter 2.3 cm LV Ejection Fraction 2D Teich 59.4 % LV Ejection Fraction MOD 4C 43.9 % LV Ejection Fraction MOD 2C 46.8 % LV Ejection Fraction 2C AL 46.0 % LA Diameter 3.4 cm RA Systolic Volume 4C AL 46.0 ml RA Systolic Volume 4C MOD 43.6 ml LA Sys Volume AL 44.6 cm cubed LA Sys Volume Index AL 21.5 cm cubed/m squared Aorta at Sinotubular Diameter 1.8 cm IVC Diameter 1.4 cm M-MODE LA Ao Ratio MM 1.1 AV Cusp Separation MM 1.7 cm DOPPLER AV Peak Velocity 134.0 cm/s LVOT Peak Velocity 112.0 cm/s AV Area Cont Eq vti 3.9 cm squared AV Area Cont Eq pk 3.3 cm squared MV Peak Velocity 198.0 cm/s MV Area PHT 2.8 cm squared Mitral E to A Ratio 0.8 TR Peak Velocity 192.0 cm/s TR Peak Gradient 14.7 mmHg TR Mean Velocity 146.0 cm/s TR Mean Gradient 9.3 mmHg TR Velocity Time Integral 56.9 cm TV Peak E Velocity 47.0 cm/s Right Atrial Pressure 3.0 mmHg Pulmonary Artery Systolic Pressu 17.7 mmHg PV Peak Velocity 81.0 cm/s RV Ejection Time 0.3 s FINDINGS Left Ventricle Mildly increased left ventricular cavity size. Moderately decreased left ventricular systolic function. Global left ventricular hypokinesis. Left ventricular ejection fraction is estimated at 45 %. Grade I/IV diastolic dysfunction (abnormal relaxation filling pattern), normal to mildly elevated filling pressures. Right Ventricle The right ventricle is normal in size and function. Right Atrium The right atrium is normal in size. Left Atrium Moderately increased left atrial size. Mitral Valve Bioprosthetic mitral valve is noted in a good position however there appeared to be mean gradient of 7 per 5 mmHg and peak gradient of 15 mmHg. There is mild regurgitation. Aortic Valve Aortic valve not well visualized. Tricuspid Valve Structurally normal tricuspid valve without significant stenosis or regurgitation. Pulmonary artery systolic pressure is normal. Pulmonic Valve Structurally normal pulmonic valve without significant stenosis. There is no pulmonic regurgitation. Pericardium Normal pericardium without effusion. Aorta Normal ascending aorta dimension. IVC The inferior vena cava appears normal. CONCLUSIONS Mildly increased left ventricular cavity size. Moderately decreased left ventricular systolic function. Global left ventricular hypokinesis. Left ventricular ejection fraction is estimated at 45 %. Grade I/IV diastolic dysfunction (abnormal relaxation filling pattern), normal to mildly elevated filling pressures. Moderately increased left atrial size. Bioprosthetic mitral valve is noted in a good position however there appeared to be mean gradient of 7 per 5 mmHg and peak gradient of 15 mmHg. There is mild regurgitation. Aortic valve not well visualized. There is no pericardial effusion. Right atrial pressure is around 5 mm of mercury. Duyen Pham MD (Electronically Signed) Final Date: 26 November 2023 22:09 S
== END 2023-11-25 07:45 | disposition home or self-care (01) ==
PROVIDERS: PCP Nurse Practitioner Family; Visit Provider Internal Medicine
DX: I05.0 Rheumatic mitral stenosis (principal); I50.30 Unspecified diastolic (congestive) heart failure; I50.20 Unspecified systolic (congestive) heart failure; Z95.2 Presence of prosthetic heart valve
CPT/HCPCS: 93306